=== PATIENT | male | born 1965 | race Caucasian/White ===

== ENCOUNTER 2017-11-20 07:09 | Emergency (ER) | payer BC ==
[~2017-11-20 07:09] MED LIST: ASPIRIN 81 MG CHEWABLE CTB PO STA; NITROGLYCERIN 0.4 MG TAB SL PRN; SODIUM CHLORIDE 0.9% FLUSH 10 ML SOL IV PRN
[2017-11-20] MEDS ORDERED: NITROGLYCERIN 0.4 MG TAB SL ONE (07:13)
[2017-11-20] MEDS ORDERED: ASPIRIN 81 MG CHEWABLE CTB ONE (07:13)
[2017-11-20] MEDS ORDERED: DILTIAZEM 5 MG/ML SOL IV ONE ×5 (07:16→07:53)
[2017-11-20 07:17] VITALS: TEMP 96.4
[2017-11-20 07:24] LABS: BASOPHILS % (AUTO) 1 % (0-3); EOSINOPHILS % (AUTO) 2 % (0-9); HEMATOCRIT 49 % (39-53); HEMOGLOBIN 16.7 gm/dl (13.5-17.7); LYMPHOCYTES % (AUTO) 28.8 % (10-50); MEAN CORPUSCULAR HEMOGLOBIN 32.1 pg (27.0-32.0); MEAN CORPUSCULAR HGB CONC 33.9 gm/dl (32.0-36.0); MEAN CORPUSCULAR VOLUME 95 fL (80-100); MONOCYTES % (AUTO) 10.9 % (0-12); NEUTROPHILS % (AUTO) 57.3 % (37-80)
[2017-11-20] MEDS ORDERED: SODIUM CHLORIDE 0.9% 1000ML 1,000 ML IV ONE ×2 (07:26→08:41)
[2017-11-20 07:32] LABS: INR 0.93 (0.86-1.12)
[2017-11-20 07:34] LABS: BLOOD UREA NITROGEN 18 mg/dl (7-18); CARBON DIOXIDE 23.8 mEq/L (21-32); CHLORIDE 105 mMol/L (98-107); CREATINE KINASE 135 U/L (39-308); CREATININE 1.26 mg/dl (0.80-1.30); GLUCOSE 141 mg/dl (74-106); POTASSIUM 4.3 mMol/L (3.5-5.1); SODIUM 140 mMol/L (136-145); TROP I < 0.017 ng/ml (0.000-0.056)
[2017-11-20] MEDS ORDERED: HEPARIN SODIUM 5000 U/ML SOL IV ONE ×2 (08:05→08:06)
[2017-11-20] MEDS ORDERED: HEPARIN SODIUM 5000 U/ML SOL ONE ×2 (08:09)
[2017-11-20] MEDS ORDERED: HEPARIN SODIUM 5000 U/ML 25,000 U in DEXTROSE 250 ML 250 ML IV PRN (08:10)
[2017-11-20] MEDS ORDERED: DILTIAZEM HCL 120 MG TABLET PO ONE (08:15)
[2017-11-20] MEDS ORDERED: LORAZEPAM 0.5 MG TAB PO ONE (08:28)
[2017-11-20] MEDS ORDERED: LORAZEPAM 0.5 MG TAB ONE (08:36)
[2017-11-20] MEDS ORDERED: SODIUM CHLORIDE 0.9% 1000ML 1,000 ML IV SCH (09:15)
[2017-11-20] MEDS ORDERED: ENOXAPARIN 100 MG SOL SC ONE (11:05)
[2017-11-20] MEDS ORDERED: ENOXAPARIN 100 MG SOL SC SCH (11:15)
[2017-11-20 13:46] VITALS: BP 111/68; PULSE 53; RESP 17; O2SAT 99
== END 2017-11-20 12:32 | disposition home or self-care (01) ==
LOC: ED 07:09
DX: R00.2 Palpitations (principal); R07.9 Chest pain, unspecified; I48.0 Paroxysmal atrial fibrillation; R11.2 Nausea with vomiting, unspecified; R42 Dizziness and giddiness
CPT/HCPCS: 71046; 80048; 82550; 83735; 83880; 84443; 84484; 85025; 85610; 85730; 93005; 96365; 96366; 96372; 96374; 96375; 99211; 99284; 99285; J1644; J1650; A9270-GY; J2704; J3490

== ENCOUNTER 2018-04-06 14:40 | Emergency (ER) | payer BC ==
[2018-04-06 17:04] LABS: BASOPHILS % (AUTO) 1 % (0-3); EOSINOPHILS % (AUTO) 1 % (0-9); HEMATOCRIT 50 % (39-53); HEMOGLOBIN 16.4 gm/dl (13.5-17.7); LYMPHOCYTES % (AUTO) 28.3 % (10-50); MEAN CORPUSCULAR HEMOGLOBIN 31.1 pg (27.0-32.0); MEAN CORPUSCULAR HGB CONC 32.8 gm/dl (32.0-36.0); MEAN CORPUSCULAR VOLUME 95 fL (80-100); NEUTROPHILS % (AUTO) 62.2 % (37-80)
[2018-04-06 17:18] LABS: ALBUMIN 4.1 gm/dl (3.4-5.0); ALKALINE PHOSPHATASE 54 IU/L (46-116); ALT 84 IU/L (14-63); AST 26 IU/L (15-37); BILIRUBIN,TOTAL 0.5 mg/dl (0.2-1.0); BLOOD UREA NITROGEN 16 mg/dl (7-18); CHLORIDE 103 mMol/L (98-107); CREATININE 1.23 mg/dl (0.80-1.30); GLUCOSE 115 mg/dl (74-106); POTASSIUM 4.3 mMol/L (3.5-5.1); SODIUM 140 mMol/L (136-145); TOTAL PROTEIN 7.5 gm/dl (6.4-8.2)
[2018-04-06 17:21] LABS: ALCOHOL < 0.003 gm/dl (0.000-0.08)
[2018-04-06 17:32] LABS: APPEARANCE,URINE Clear; BILIRUBIN,URINE NEGATIVE (NEGATIVE); COLOR,URINE Yellow; GLUCOSE, URINE (UA) NEGATIVE (NEGATIVE); KETONES,URINE NEGATIVE (NEGATIVE); LEUKOCYTE ESTERASE ,URINE NEGATIVE (NEGATIVE); NITRATE,URINE NEGATIVE (NEGATIVE); OCCULT BLOOD,URINE NEGATIVE (NEG-TRACE); UROBILINOGEN,URINE 0.2 (0.2-1.0 EU)
[2018-04-06 17:46] LABS: CRYSTALS 1+ (0-3 AVE/HPF); EPITHELIAL CELLS NEGATIVE (SQUAMOUS); RBC,URINE 0-1 (0-3AV/HPF); WBC,URINE 0-1 (0-5AV/HPF)
[2018-04-06 17:47] LABS: AMPHETAMINES NEGATIVE (NEGATIVE); BACTERIA 1+ (< 1+); BARBITUATES NEGATIVE (NEGATIVE); BENZODIAZEPINES NEGATIVE (NEGATIVE); CANNABINOL(THC) NEGATIVE (NEGATIVE); COCAINE(COC) NEGATIVE (NEGATIVE); METHADONE NEGATIVE (NEGATIVE); METHAMPHETAMINES NEGATIVE (NEGATIVE); OPIATES(OPI) NEGATIVE (NEGATIVE); OXYCODONE(OXY) NEGATIVE (NEGATIVE); PROPOXYPHENE(PPX) NEGATIVE (NEGATIVE); TRICYCLIC ANTIDEPRESSANTS NEGATIVE (NEGATIVE)
[2018-04-06 18:07] VITALS: BP 149/104; PULSE 74; RESP 16; TEMP 98.1; O2SAT 98
== END 2018-04-06 18:04 | disposition home or self-care (01) ==
LOC: ED 14:40
DX: F32.9 Major depressive disorder, single episode, unspecified (principal); R45.851 Suicidal ideations
CPT/HCPCS: 36415; 80053; 80305; 80307; 81001; 85025; 99282